=== PATIENT | male | born 1995 | race African-American/Black ===

== ENCOUNTER → 2018-07-26 | Outpatient (CLI) | payer BC ==
--- NOTE | 2018-07-27 09:33 | RAD ---
Scrotal ultrasound, 07/26/2018: HISTORY: Left scrotal swelling The left testicle measures 5.5 x 4.7 x 3.4 cm. No testicular mass is seen. Blood flow within the left testicle and left epididymis appears increased. There is a moderate sized septated hydrocele on the left. 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 IMPRESSION: 1. Hypervascular left testicle and epididymis suggesting epididymoorchitis. 2. Left hydrocele with septations raising the possibility of a hematocele of indeterminate age or pyocele. Note: The certified neurodiagnostic technologist is currently attempting to call this report to the ordering provider at 9:30 AM on 07/27/2018. Electronically signed by: Thaddeus Grant MD (07/27/2018 9:29 AM) [facility]
== END | disposition home or self-care (01) ==
LOC: US 17:13
PROVIDERS: ATTEND Family Medicine
DX: N43.3 Hydrocele, unspecified (principal)
CPT/HCPCS: 76870

== ENCOUNTER 2019-03-24 03:11 | Emergency (ER) | payer BC ==
[~2019-03-24] VITALS: Ht 190.5 cm; Wt 127.5 kg
[2019-03-24 03:44] VITALS: BP 173/72
[2019-03-24] MEDS ORDERED: AZITHROMYCIN 250 MG TABLET. PO ONE (04:00)
[2019-03-24] MEDS ORDERED: cefTRIAXone IM 250 MG VIAL IM ONE (04:00)
[2019-03-24 05:16] LABS: BILIRUBIN,URINE NEGATIVE (NEG); CLARITY,URINE CLEAR; COLOR,URINE YELLOW; NITRITE,URINE NEGATIVE (NEG); PH,URINE 6.5; PROTEIN,URINE NEGATIVE (NEG-TRACE)
[2019-03-24 05:21] LABS: BACTERIA,URINE 0 /HPF (0-FEW); RBC,URINE 0 /HPF (0-2); SQUAMOUS EPITHELIAL CELL,UR OCC /LPF
--- NOTE | 2019-03-24 05:35 | RAD ---
Scrotal ultrasound: Reason for examination: Testicular pain and swelling. Removal of the right testicle after an accident in 2007. Ultrasound examination of the scrotum was performed. The right testicle has been surgically removed. The left testicle measures 5.0 x 3.5 x 3.3 cm in greatest dimension and appears homogeneous the epididymis is not identified. Evaluation of vascular flow is limited by large amount of fluid around the testicle. There is a large hydrocele measuring at least 10.5 x 7.1 x 7.1 cm in greatest dimension. IMPRESSION: Large left hydrocele measuring at least 10.5 x 7.1 x 7.1 cm in greatest dimension. Electronically signed by: Tatiana Degroot MD (03/24/2019 5:32 AM) [facility]
--- NOTE | 2019-03-24 05:36 | PHYS DOC ---
Past Medical History Past Medical History: No Pertinent History Past Surgical History: Tonsillectomy Additional Past Surgical Histo: TESTICLE REMOVED AFTER INJURY, FINGER SURGERY Alcohol Use: None Drug Use: None Adult General Chief Complaint Chief Complaint: SEXUALLY TRANSMITTED DISEASE HPI HPI Patient is a 23 year old [f__sex] who presents with [] Review of Systems Review of Systems Constitutional: Denies fever or chills [] Eyes: Denies change in visual acuity, redness, or eye pain [] HENT: Denies nasal congestion or sore throat [] Respiratory: Denies cough or shortness of breath [] Cardiovascular: No additional information not addressed in HPI [] GI: Denies abdominal pain, nausea, vomiting, bloody stools or diarrhea [] : Denies dysuria or hematuria [] Musculoskeletal: Denies back pain or joint pain [] Integument: Denies rash or skin lesions [] Neurologic: Denies headache, focal weakness or sensory changes [] Endocrine: Denies polyuria or polydipsia [] All other systems were reviewed and found to be within normal limits, except as documented in this note. Current Medications Current Medications Current Medications Medications (Trade) Dose Ordered Sig/Kamari Start Time Stop Time Status Last Admin Dose Admin Azithromycin (Zithromax) 1,000 mg 1X ONCE 03/24/19 04:00 03/24/19 04:05 DC 03/24/19 04:26 1,000 MG Ceftriaxone Sodium (Rocephin Im) 250 mg 1X ONCE 03/24/19 04:00 03/24/19 04:05 DC 03/24/19 04:26 250 MG Allergies Allergies Allergies Coded Allergies Type Severity Reaction Last Updated Verified No Known Drug Allergies 03/24/19 No Physical Exam Physical Exam Constitutional: Well developed, well nourished, no acute distress, non-toxic appearance. [] HENT: Normocephalic, atraumatic, bilateral external ears normal, oropharynx moist, no oral exudates, nose normal. [] Eyes: PERRLA, EOMI, conjunctiva normal, no discharge. [] Neck: Normal range of motion, no tenderness, supple, no stridor. [] Cardiovascular:Heart rate regular rhythm, no murmur [] Lungs & Thorax: Bilateral breath sounds clear to auscultation [] Abdomen: Bowel sounds normal, soft, no tenderness, no masses, no pulsatile masses. [] Skin: Warm, dry, no erythema, no rash. [] Back: No tenderness, no CVA tenderness. [] Extremities: No tenderness, no cyanosis, no clubbing, ROM intact, no edema. [] Neurologic: Alert and oriented X 3, normal motor function, normal sensory function, no focal deficits noted. [] Psychologic: Affect normal, judgement normal, mood normal. [] Current Patient Data Vital Signs Vital Signs Date Time Temp Pulse Resp B/P (MAP) Pulse Ox O2 Delivery O2 Flow Rate FiO2 03/24/19 03:44 98.1 67 18 173/72 (105) 100 Room Air 98.1 Lab Values Laboratory Tests Test 03/24/19 04:25 03/24/19 04:50 Treponema pallidum Antibody Reactive (Nonreactive) Urine Collection Type Unknown Urine Color Yellow Urine Clarity Clear Urine pH 6.5 Urine Specific [place] 1.025 Urine Protein Negative mg/dL (NEG-TRACE) Urine Glucose (UA) Negative mg/dL (NEG) Urine Ketones (Stick) Negative mg/dL (NEG) Urine Blood Negative (NEG) Urine Nitrite Negative (NEG) Urine Bilirubin Negative (NEG) Urine Urobilinogen Dipstick 1.0 mg/dL (0.2 mg/dL) Urine Leukocyte Esterase Negative (NEG) Urine RBC 0 /HPF (0-2) Urine WBC 1-4 /HPF (0-4) Urine Squamous Epithelial Cells Occ /LPF Urine Bacteria 0 /HPF (0-FEW) Urine Mucus Slight /LPF EKG EKG [] Radiology/Procedures Radiology/Procedures [] Course & Med Decision Making Course & Med Decision Making Pertinent Labs and Imaging studies reviewed. (See chart for details) [] Dragon Disclaimer Dragon Disclaimer This electronic medical record was generated, in whole or in part, using a voice recognition dictation system. Departure Departure Impression: Primary Impression: Concern about STD in male without diagnosis Additional Impressions: Syphilis Hydrocele in adult Disposition: 01 HOME, SELF-CARE Condition: STABLE Referrals: NIRAJ JONES NP (PCP) SAMIR BORJA MD Patient Instructions: Sexually Transmitted Disease, [id number], Syphilis Detection Test Additional Instructions: Ultrasound noted a "hydrocele" which is a benign collection of fluid in the scrotum. Please follow closely with an Urologist regarding. Problem Qualifiers ILDA VEGA DO Mar 24, 2019 05:36
[2019-03-24] MEDS ORDERED: PENICILLIN G BENZATHINE LA 2,400,000 UNIT/4 ML DISP.SYRIN. IM ONE (06:00)
== END 2019-03-24 06:03 | disposition home or self-care (01) ==
LOC: ER 03:11
DX: Z20.2 Contact with and (suspected) exposure to infections with a predominantly sexual mode of transmission (principal); A53.9 Syphilis, unspecified; N43.3 Hydrocele, unspecified
CPT/HCPCS: 36415; 76870; 81001; 86592; 86593; 87491; 87591; 96372; 99285; J0561; J0696; Q0144